=== PATIENT | female | born 1995 | race Caucasian/White ===

== ENCOUNTER 2017-06-17 19:55 | Emergency (ER) | payer MEDICAID ==
[~2017-06-17] VITALS: Ht 167.6 cm; Wt 120.5 kg
[2017-06-17] MEDS ORDERED: KETOROLAC TROMETHAMINE 60 MG/2 ML VIAL IM ONE (21:15)
[2017-06-17] MEDS ORDERED: DIAZEPAM 5 MG TABLET PO ONE (22:00)
[2017-06-17 22:03] VITALS: BP 140/68
== END 2017-06-17 22:24 | disposition home or self-care (01) ==
LOC: EMS 19:56
DX: M54.5 Low back pain (principal)
CPT/HCPCS: 96372; 99283; J1885